=== PATIENT | female | born 1975 | race African-American/Black ===

== ENCOUNTER 2023-01-26 23:26 | Emergency (ER) | payer OTHER ==
[2023-01-26 23:37] VITALS: BP 151/95; PULSE 84; RESP 18; TEMP 98.3; BMI 36.6
[2023-01-26] MEDS ORDERED: BACITRACIN 0.9 GM PACKET TP ONE (23:47)
[2023-01-26] MEDS ORDERED: BACITRACIN ZINC 15 GM TUBE TOPICAL OINTMENT ONE (23:50)
== END 2023-01-27 00:10 | disposition home or self-care (01) ==
LOC: JER 23:26
DX: S50.812A Abrasion of left forearm, initial encounter (principal); W54.0XXA Bitten by dog, initial encounter; Y99.0 Civilian activity done for income or pay
CPT/HCPCS: 99282-25